=== PATIENT | male | born 1975 | race African-American/Black ===

== ENCOUNTER 2017-11-24 09:35 | Inpatient (IN) | payer SELFPAY ==
[~2017-11-24] VITALS: Ht 175.3 cm; Wt 97.2 kg
[2017-11-24 10:44] LABS: Basophils # (auto) 0.1 uL; Basophils % (auto) 0.7 % (0.0-2.0); Eosinophils # (auto) 0 uL; Eosinophils % (auto) 0.3 % (0.0-7.0); Hematocrit 41.5 % (41.0-53.0); Hemoglobin 13.2 g/dL (13.5-17.5); Lymphocytes # (auto) 1.8 uL; Lymphocytes % (auto) 15.9 % (10.0-50.0); Mean Corpuscular Hemoglobin 27.8 pg (28.0-32.0); Mean Corpuscular Hgb Conc. 31.8 g/dL (32.0-36.0); Mean Corpuscular Volume 87.3 fL (80.0-100.0); Monocytes # (auto) 0.4 uL; Monocytes % (auto) 3.9 % (0.0-12.0); Neutrophils % (auto) 79.2 % (37.0-80.0); Nucleated Red Blood Cells % 0.1 %; Platelet Count (auto) 344 10^3/uL (140-450); Red Blood Cells 4.75 10^6/uL (4.5-5.90); Red Cell Distribution Width 13.2 % (11.8-14.3); White Blood Cell 11.4 10^3/uL (4.4-10.8)
[2017-11-24 11:08] LABS: Albumin 3.6 g/dL (3.4-5.0); BUN/Creatinine Ratio 14.6; Bilirubin, Total 0.9 mg/dL (0.2-1.0); Calcium 8.7 mg/dL (8.5-10.1); Potassium 3.8 mmol/L (3.5-5.1); Total Protein 7.9 g/dL (6.4-8.2)
[2017-11-24] MEDS ORDERED: cefTRIAXone 1GM/10ml IVPUSH 10 ML IV ONE (11:45)
[2017-11-24 12:33] LABS: Magnesium 2.5 mg/dL (1.6-2.6)
[2017-11-24 12:35] LABS: INR 1.05 (0.9-1.15); Partial Thromboplastin Time 28.6 sec (22.64-33.71); Prothrombin Time 11.4 sec (9.37-12.3)
[2017-11-24] MEDS ORDERED: LACTULOSE 20Gm/30ML SOLN PO PRN (18:00)
[2017-11-24] MEDS ORDERED: ASPirin 81 mg TAB PO ONE (18:00)
[2017-11-24] MEDS ORDERED: NITROGLYCERIN 0.4 MG SL TAB SL PRN (18:00)
[2017-11-24] MEDS ORDERED: AZITHROMYCIN 500MG/ 250ML 250 ML IV ONE (18:00)
[2017-11-24] MEDS ORDERED: MORPHINE SULFATE 4 MG/ML SYR/VIAL IV PRN (18:00)
[2017-11-24] MEDS ORDERED: LISINOPRIL 20 MG TAB PO ONE (18:15)
[2017-11-24] MEDS: FUROSEMIDE 20 MG/2 ML VIAL IV SCH (18:51)
[2017-11-24] MEDS: AZITHROMYCIN 250 MG TAB PO SCH (18:51)
[2017-11-24] MEDS: ATORVASTATIN 20 MG TAB PO SCH (22:00)
[2017-11-24] MEDS ORDERED: METOPROLOL TARTRATE 25 MG TAB PO SCH (22:00)
[2017-11-24] MEDS: CARVEDILOL 12.5 MG TAB PO SCH (22:00)
[2017-11-24] MEDS: SODIUM CHLOR 0.9% PF (SALINE LOCK) 10ML VIAL IV SCH (22:21)
[2017-11-25] VITALS (7 sets, daily range): BP systolic 130–146; BP diastolic 87–100
[2017-11-25] MEDS: LORazepam 0.5 MG TAB PO PRN ×2 (02:29→21:50)
[2017-11-25 06:03] LABS: Basophils # (auto) 0.1 uL; Basophils % (auto) 0.8 % (0.0-2.0); Eosinophils # (auto) 0.1 uL; Eosinophils % (auto) 0.6 % (0.0-7.0); Lymphocytes # (auto) 1.7 uL; Lymphocytes % (auto) 17.7 % (10.0-50.0); Mean Corpuscular Hemoglobin 28.7 pg (28.0-32.0); Mean Corpuscular Hgb Conc. 33.5 g/dL (32.0-36.0); Mean Corpuscular Volume 85.9 fL (80.0-100.0); Monocytes # (auto) 0.5 uL; Monocytes % (auto) 5.2 % (0.0-12.0); Neutrophils # (auto) 7.3 uL; Neutrophils % (auto) 75.7 % (37.0-80.0); Nucleated Red Blood Cells % 0.1 %; Platelet Count (auto) 326 10^3/uL (140-450); Red Blood Cells 4.54 10^6/uL (4.5-5.90); Red Cell Distribution Width 13.1 % (11.8-14.3); White Blood Cell 9.6 10^3/uL (4.4-10.8)
[2017-11-25] MEDS: FUROSEMIDE 20 MG/2 ML VIAL IV SCH ×2 (06:03→18:01)
[2017-11-25] MEDS: SODIUM CHLOR 0.9% PF (SALINE LOCK) 10ML VIAL IV SCH ×3 (06:03→21:53)
[2017-11-25 06:23] LABS: Albumin 3.2 g/dL (3.4-5.0); BUN/Creatinine Ratio 14.7; Calcium 8.9 mg/dL (8.5-10.1); Potassium 3.6 mmol/L (3.5-5.1); Total Protein 7.2 g/dL (6.4-8.2)
[2017-11-25 09:28] LABS: Urine Bacteria NONE SEEN /hpf (None Seen); Urine Blood Negative /uL (Negative); Urine Mucus FEW (None Seen); Urine Specific Gravity 1.013 (1.001-1.035); Urine Sperm PRESENT /hpf (None Seen); Urine WBC 3 /hpf (0 - 3)
[2017-11-25 09:43] LABS: Alcohol, Urine < 3.0 mg/dL (0-5); Amphetamine Screen, Urine NEGATIVE (NEGATIVE); Barbiturate Scree,Urine NEGATIVE (NEGATIVE); Benzodiazephine Screen, Urine NEGATIVE (NEGATIVE); Cannabinoid Screen, Urine POSITIVE (NEGATIVE); Cocaine Screen, Urine NEGATIVE (NEGATIVE); Opiate Scree,Urine NEGATIVE (NEGATIVE); Phencyclidine Screen, Urine NEGATIVE (NEGATIVE)
[2017-11-25] MEDS: cefTRIAXone 1GM/10ml IVPUSH 10 ML IV SCH (09:43)
[2017-11-25] MEDS: amLODIPine BESYLATE 5 MG TAB PO SCH (09:49)
[2017-11-25] MEDS: AZITHROMYCIN 250 MG TAB PO SCH (09:50)
[2017-11-25] MEDS: ISOSORBIDE MONONITRATE 60 MG TAB PO SCH (09:50)
[2017-11-25] MEDS: ASPirin 81 mg TAB PO SCH (09:50)
[2017-11-25] MEDS: CARVEDILOL 12.5 MG TAB PO SCH ×2 (09:51→21:51)
[2017-11-25] MEDS: LISINOPRIL 20 MG TAB PO SCH (09:52)
[2017-11-25] MEDS ORDERED: AZITHROMYCIN 500MG/ 250ML 250 ML IV SCH (10:00)
[2017-11-25] MEDS ORDERED: AMIO200T33 PO (13:00)
[2017-11-25] MEDS ORDERED: ASPI81CH49 PO (13:00)
[2017-11-25] MEDS ORDERED: LISI-275 PO (13:00)
[2017-11-25] MEDS ORDERED: CARV6.2551 PO (13:00)
[2017-11-25] MEDS ORDERED: ISOS30TA4 PO (13:00)
[2017-11-25] MEDS: ATORVASTATIN 20 MG TAB PO SCH (21:50)
[2017-11-26 05:48] VITALS: BP 133/84
[2017-11-26] MEDS: SODIUM CHLOR 0.9% PF (SALINE LOCK) 10ML VIAL IV SCH (06:08)
[2017-11-26] MEDS: FUROSEMIDE 20 MG/2 ML VIAL IV SCH (06:09)
[2017-11-26 09:22] VITALS: BP 148/94
[2017-11-26] MEDS: cefTRIAXone 1GM/10ml IVPUSH 10 ML IV SCH (09:43)
[2017-11-26] MEDS: AZITHROMYCIN 250 MG TAB PO SCH (09:43)
[2017-11-26] MEDS: LISINOPRIL 20 MG TAB PO SCH (09:43)
[2017-11-26] MEDS: ISOSORBIDE MONONITRATE 60 MG TAB PO SCH (09:44)
[2017-11-26] MEDS: CARVEDILOL 12.5 MG TAB PO SCH (09:44)
[2017-11-26] MEDS: ASPirin 81 mg TAB PO SCH (09:44)
[2017-11-26] MEDS: amLODIPine BESYLATE 5 MG TAB PO SCH (09:45)
== END 2017-11-26 10:35 | disposition home or self-care (01) | DRG 291 ==
LOC: ER 09:35 → TELE 09:36 → TELE-CENTR 11-25 02:24
PROVIDERS: ADMIT Family Medicine; ATTEND Family Medicine
DX: I11.0 Hypertensive heart disease with heart failure (principal); J15.9 Unspecified bacterial pneumonia; I50.43 Acute on chronic combined systolic (congestive) and diastolic (congestive) heart failure; E78.5 Hyperlipidemia, unspecified; F17.210 Nicotine dependence, cigarettes, uncomplicated; I25.10 Atherosclerotic heart disease of native coronary artery without angina pectoris; F19.10 Other psychoactive substance abuse, uncomplicated; F14.90 Cocaine use, unspecified, uncomplicated; I25.2 Old myocardial infarction; Z82.49 Family history of ischemic heart disease and other diseases of the circulatory system
CPT/HCPCS: 36415; 71045; 71046; 80053; 80061; 80307; 81001; 83605; 83735; 83880; 84484; 85025; 85610; 85730; 87040; 87070; 87205; 87400; 93005; 94761; 96374; 96376